=== PATIENT | female | born 1980 | race Caucasian/White ===

== ENCOUNTER 2019-10-19 06:08 | Emergency (ER) | payer OTHER ==
[~2019-10-19] VITALS: Ht 177.8 cm; Wt 59.0 kg
[2019-10-19] MEDS ORDERED: SINGULEAR (06:22)
[2019-10-19] MEDS ORDERED: NASAL MIST126 ML (06:22)
[2019-10-19] MEDS ORDERED: FLONASE (06:24)
== END 2019-10-19 11:24 | disposition home or self-care (01) ==
LOC: ER 06:08
DX: R03.1 Nonspecific low blood-pressure reading (principal)

== ENCOUNTER 2023-01-04 13:50 | Emergency (ER) | payer OTHER ==
[~2023-01-04] VITALS: Ht 177.8 cm; Wt 54.4 kg
[~2023-01-04 13:50] MED LIST: FLONASE; NASAL MIST126 ML; SINGULEAR
[2023-01-04] MEDS ORDERED: ZANAFLEX4 M1 PO (17:48)
[2023-01-04] MEDS ORDERED: TRAMADOL HCL50 MG PO (17:48)
== END 2023-01-04 18:15 | disposition home or self-care (01) ==
LOC: ER 13:50
DX: M25.551 Pain in right hip (principal)